=== PATIENT | male | born 1980 | race Caucasian/White ===

== ENCOUNTER 2017-10-18 18:16 | Emergency (ER) | payer MEDICAID ==
[~2017-10-18] VITALS: Ht 180.3 cm; Wt 90.9 kg
[2017-10-18 18:28] VITALS: BP 153/99
== END 2017-10-18 19:12 | disposition home or self-care (01) ==
LOC: EMS 18:18
DX: J06.9 Acute upper respiratory infection, unspecified (principal); R03.0 Elevated blood-pressure reading, without diagnosis of hypertension
CPT/HCPCS: 99282